=== PATIENT | female | born 1940 | race Caucasian/White ===

== ENCOUNTER 2016-07-19 09:48 | Outpatient (CLI) ==
--- NOTE | 2016-07-20 07:26 | MAMMO ---
EXAM: Digital screening mammogram HISTORY: Annual screening mammogram COMPARISON: Mammogram 03/02/2015 and 02/24/2014 FINDINGS: Bilateral CC and MLO views of the breasts were performed digitally and demonstrate scatte red fibroglandular breast density (25 - 50%). There is no abnormal nodule or calcification. There is no significant interval change. IMPRESSION: No suspicious nodule or calcification RECOMMENDATION: Annual screening mammogram BIRADS category 1: Negative
== END 2016-07-19 09:49 | disposition home or self-care (01) ==
LOC: RAD 09:48
PROVIDERS: ATTEND Family Medicine
DX: Z12.31 Encounter for screening mammogram for malignant neoplasm of breast (principal)

== ENCOUNTER 2018-12-18 06:51 | Day surgery (SDC) ==
[2018-12-18] MEDS ORDERED: LIDOCAINE 1% 20 ML MDV ID STA (07:42)
[2018-12-18] MEDS ORDERED: DIPRIVAN 20 ML VIAL IVP ONE (09:15)
[2018-12-18 10:58] VITALS: BP 168/75; TEMP 98.2
--- NOTE | 2018-12-19 10:42 | OP ---
INDICATIONS FOR PROCEDURE: 78 year old female presents for colonoscopy. She has had a little change in bowel habits with fecal incontinence of the last couple months. She has had some bright red blood from rectum. She presents for colonoscopy. She has history of adenomatous polyps on colonoscopy about 5 years ago. MEDICATIONS: SEE ANESTHESIA NOTES. PROCEDURE: COLONOSCOPY. BIOPSY. REPORT: The risks, benefits, alternatives and limitations were discussed in detail with the patient. Informed consent was obtained. After adequate sedation was achieved, a digital rectal exam revealed good tone, no masses. The colonoscope was introduced into the rectum and advanced under direct visual guidance to the cecum. The cecum was identified by the appendiceal orifice and IC valve. I then slowly withdrew the scope in circumferential manner and examining the mucous quite carefully. I looked on the proximal and distal sides of folds and flexures as best as possible. I was able to retroflex the scope in the right colon and the left colon to increase visualization. In the sigmoid area there was scattered small mouth diverticuli. On retroflex view of the anal canal there is what appeared to be an inflamed anal skin tag. There is a small hemorrhoid present as well. I biopsied this and skin tag several times for histological review. I also noted a small PVM in the ascending colon not mentioned above. No other abnormalities were noted. The prep was good. The withdraw time was 15 minutes and 39 seconds. The patient tolerated the procedure well with stable vital signs and pulse oximetry throughout. IMPRESSION: 1. Small inflamed anal skin tag, biopsied as above 2. Small non engorged internal hemorrhoid 3. Sigmoid diverticulosis 4. 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 High fiber diet 2. Await pathology results and if everything is benign as expected I recommend a surveillance colonoscopy examination again in 5 years. 3. I suggest daily fiber supplement of 5-10 grams daily 4. We will see her back in the office as needed CC: Dr. Robert TOLEDO
== END 2018-12-18 10:45 | disposition home or self-care (01) ==
LOC: SURG 06:51
PROVIDERS: ATTEND Internal Medicine Gastroenterology
DX: R15.9 Full incontinence of feces (principal); K62.5 Hemorrhage of anus and rectum; K64.8 Other hemorrhoids; K57.30 Diverticulosis of large intestine without perforation or abscess without bleeding; Q27.33 Arteriovenous malformation of digestive system vessel; K64.4 Residual hemorrhoidal skin tags